=== PATIENT | male | born 1975 | race Caucasian/White ===

== ENCOUNTER 2020-03-01 12:54 | Emergency (ER) | payer BC, SELFPAY ==
--- NOTE | ~2020-03-01 | XR_ITS ---
EXAMINATION: XR toe 5th LT min 2V DATE: 03/01/2020 13:22 INDICATION: Left fifth toe injury. TECHNIQUE: 4 views of left fifth toe were obtained. COMPARISON: None. FINDINGS: There is an oblique fracture of neck of fifth proximal phalanx. The distal fracture fragmen t demonstrates 2 mm dorsal displacement, shortening, 36 degrees lateral angulation, and 32 degrees do rsal angulation. Joint spaces are normal. IMPRESSION: 1. Oblique fracture of neck of fifth proximal phalanx. Reviewed, dictated and finalized at location A.
--- NOTE | 2020-03-01 13:01 | ED.LOWEXIN ---
HPI - Extremity Injury (Lower) General Chief Complaint: Extremity Injury, Lower Stated Complaint: L/knee & foot pain History of Present Illness HPI Narrative: The patient, previously mostly healthy, presents with left , small toe pain that is moderate, worse with motion, better at rest, began prior to arrival. Patient states he slipped going downstairs striking the spindle/ baluster with toe; he also has trivial left knee discomfort. No bleeding, but there is mild swelling deformity with deviation of the distal toe. Patient advised to wear flat shoe, that he will need alex taping, and to follow-up with podiatry Related Data Allergies Allergy/AdvReac Type Severity Reaction Status Date / Time No Known Allergies Allergy Verified 08/03/19 10:18 Review of Systems Review of Systems: Narrative: General/Constitutional: No weight loss,fever Eyes: N0: Redness,discharge Ears/Nose/Throat: No: Epistaxis,ear discharge Respiratory: Denies: Hemoptysis Gastrointestinal: No Vomiting, Bleeding-rectal Skin: No Lumps, eruption Neurologic: No Focal Weakness,Sz Hematologic: Denies: Petechiae/Purpura Psychiatric: No: Suicida ideationl All Other Systems: Reviewed and Negative PMFSH Comments At time of signature, agree with nursing past medical, surgical, social and family history. There is no relevant family history pertinent to the presenting complaint Exam Narrative: Exam Narrative: General Appearance: Well appearing, Conjunctiva clear Mouth/Throat: Normal appearing, Supple Respiratory: Airway patent, No respiratory distress MS-toe: Normal strength (mostly intact, limited flexion/extension by pain), Tenderness (proximally, with mild decreased ROM), Swelling proximally, Other : Lateral angulation, no anterior drawer, no collateral laxity, skin intact Neurological: A&O x3, Normal affect Course Vital Signs Vital signs: Vital Signs Temperature 98.9 F 03/01/20 13:02 Pulse Rate 123 H 03/01/20 13:02 Respiratory Rate 12 03/01/20 13:02 Blood Pressure 139/69 03/01/20 13:02 Pulse Oximetry 98 03/01/20 13:02 Temperature 98.9 F 03/01/20 13:02 Pulse Rate 123 H 03/01/20 13:02 Respiratory Rate 12 03/01/20 13:02 Blood Pressure 139/69 03/01/20 13:02 Pulse Oximetry 98 03/01/20 13:02 Procedures Orthopedic Splinting/Casting Injury #1: Splinting/Casting Date: 03/01/20 Side: left Lower Extremity Injury Location: toe (, small) Pre-Formed: post op shoe Pre-Procedure Neuro Vascular Exam: normal Post-Procedure Neuro Vascular Exam: normal Additional Comments: Neurovascularly intact after toe realignment, foot splinting and taping Discharge Plan Discharge Clinical Impression: Toe fracture, left Qualifiers: Encounter type: initial encounter Toe: lesser toe Fracture type: closed Phalanx: proximal Fracture alignment: displaced Qualified Code(s): S92.512A - Displaced fracture of proximal phalanx of left lesser toe(s), initial encounter for closed fracture Patient Disposition: Home, Self-Care Condition: Improved Instructions: Toe Fracture (ED) Additional Instructions: Wear splint, see foot doctor in follow-up Prescriptions: New acetaminophen-codeine 300-30 mg tablet 1 tablet PO HS PRN (Reason: pain) Qty: 10 RF: 0 tramadol 50 mg tablet 50 mg PO TID PRN (Reason: pain) Qty: 15 RF: 1 Follow-up/Referrals: UNKNOWN,DOCTOR [Primary Care Provider] - Discharge Date/Time: 03/01/20 14:00
[2020-03-01 13:02] VITALS: BP 139/69; PULSE 123; RESP 12; TEMP 37.2; O2SAT 98
== END 2020-03-01 14:00 | disposition home or self-care (01) ==
PROVIDERS: Emergency Provider Emergency Medicine
DX: S92.512A Displaced fracture of proximal phalanx of left lesser toe(s), initial encounter for closed fracture (principal); W10.9XXA Fall (on) (from) unspecified stairs and steps, initial encounter
CPT/HCPCS: 73660; 99214; G0463

== ENCOUNTER 2021-05-19 19:09 | Emergency (ER) | payer BC, SELFPAY ==
[2021-05-19 19:13] VITALS: BP 135/86; PULSE 84; RESP 16; TEMP 36.6; O2SAT 97
--- NOTE | 2021-05-19 20:18 | ED.DENTAL ---
HPI - Dental/Oral General Chief complaint: Dental/Oral Stated complaint: infection in mouth Time Seen by Provider: 05/19/21 19:49 Source: patient and RN notes reviewed Mode of arrival: ambulatory Limitations: no limitations History of Present Illness HPI Narrative: This is a 45 year old male who presents for evaluation of left cheek swelling. PAtient reports he had a crown placed 1 week ago . He states the crown came off and it was replaced on Saturday. He developed left cheek swelling today. He was started on clindamycin by his dentist and referred to oral surgeon. He reports he has been taking tramadol and ibuprofen this week for his pain. He has been unable to sleep due to his pain. Related Data Allergies Allergy/AdvReac Type Severity Reaction Status Date / Time No Known Allergies Allergy Verified 05/19/21 20:18 Review of Systems Review of Systems: All systems reviewed & are unremarkable except as noted in HPI and below PMFSH Past Medical History Medical History (Updated 05/20/21 @ 00:00 by Background Daemon) Patient denies medical problems Exam Const: General: no acute distress and alert Orientation/consciousness: patient oriented x3 HENMT: Head: normocephalic and atraumatic Mouth: Yes lip normal, Yes moist mucous membranes, No trismus and Yes other (left cheek swelling) Teeth and gingiva: abnormal tooth and associated gingiva (draining abscess to left gum ta tooth 13, purulent drainage) and fair dentition Throat: posterior oropharynx normal, tonsils normal and uvula midline Resp: Effort & Inspection: normal respiratory effort Skin: General skin exam: normal color Neuro: General: patient oriented x3, moves all extremities and CN's II-XI intact bilaterally Psych: Mental Status: mental status grossly normal Affect: normal affect Course Reevaluation(s) Reevaluation #1: PAtient was given dose of IV clindamycin in ER and pain medication. HE will continue his clindamycin and apply warm compress to cheek to help drainage. Given that he is already draining will just continue antibiotics. HE will follow up with oral surgeon on Saturday. Date: 05/19/21 Time: 21:10 Vital Signs Vital signs: Vital Signs Temperature 97.8 F 05/19/21 19:13 Pulse Rate 84 05/19/21 19:13 Respiratory Rate 16 05/19/21 19:13 Blood Pressure 135/86 05/19/21 19:13 Pulse Oximetry 97 05/19/21 19:13 Temperature 97.8 F 05/19/21 19:13 Pulse Rate 80 05/19/21 21:33 Respiratory Rate 17 05/19/21 21:33 Blood Pressure 134/83 05/19/21 21:33 Pulse Oximetry 96 05/19/21 21:33 Discharge Plan Discharge Clinical Impression: Dental abscess Patient Disposition: Home, Self-Care Condition: Stable Instructions: Antibiotic Form, Dental Abscess (ED) Additional Instructions: Today you were evaluated for dental abscess. You will need to apply warm compresses to your cheek for 20 minute increments to help with abscess drainage. Take antibiotics as prescribed and follow up with oral surgeon on Saturday. Prescriptions: New ibuprofen 800 mg tablet 800 mg PO Q6H PRN (Reason: pain) Qty: 14 RF: 0 hydrocodone-acetaminophen 5-325 mg tablet 1 tablet PO Q6H PRN (Reason: pain) Qty: 6 RF: 0 No Action acetaminophen-codeine 300-30 mg tablet 1 tablet PO HS PRN (Reason: pain) Qty: 10 RF: 0 tramadol 50 mg tablet 50 mg PO TID PRN (Reason: pain) Qty: 15 RF: 1 Follow-up/Referrals: Aston,MD Lonny [Primary Care Provider] - Stand Alone Forms: Work/School Release IP
[2021-05-19] MEDS: ONDANSETRON INJ 4 MG/2 ML VIAL IV PUSH (20:21)
[2021-05-19] MEDS: HYDROmorphone HCL INJ (*CRX) 1 MG/ML SYR IV PUSH (20:21)
[2021-05-19] MEDS: CLINDAMYCIN 900 MG/D5W 50 ML 900 MG/50 ML PIGGYBACK 50 MG IVPB (20:32)
[2021-05-19 21:33] VITALS: BP 134/83; PULSE 80; RESP 17; O2SAT 96
== END 2021-05-19 21:46 | disposition home or self-care (01) ==
PROVIDERS: Emergency Provider General Practice; PCP Hospitalist
DX: R22.0 Localized swelling, mass and lump, head (principal); K04.7 Periapical abscess without sinus
CPT/HCPCS: 96365; 96375; 99284; J1170; J2405

== ENCOUNTER 2025-02-05 11:53 | Outpatient (CLI) | payer BC, SELFPAY ==
--- NOTE | ~2025-02-05 | XR_ITS ---
XR soft tissue neck 02/05/2025 12:18 Indication: Cervicogenic headache Procedure: 2 views of the neck soft tissues Comparison: No prior studies for comparison. Findings: No prevertebral soft tissue abnormality. Epiglottis within normal limits. No subglottic kota rowing. No evidence for enlargement of the adenoids or lingual tonsils. There is moderate multilevel facet hypertrophy more so on the right. Lung apices are normal. There is degenerative anterolisthesis at C4-5, C5-6 and C6-7. Impression: 1: No neck soft tissue abnormality. 2: Moderate cervical spondylosis. Reviewed, dictated and finalized at location B. Impression: 1: No neck soft tissue abnormality. 2: Moderate cervical spondylosis.
== END 2025-02-05 11:54 | disposition home or self-care (01) ==
DX: G44.86 Cervicogenic headache (principal); M47.892 Other spondylosis, cervical region
CPT/HCPCS: 70360

== ENCOUNTER 2025-03-19 07:08 | Outpatient (CLI) | payer BC, SELFPAY ==
--- NOTE | ~2025-03-19 | MR_ITS ---
EXAMINATION: MR cervical spine wo con DATE: 03/19/2025 07:35 INDICATION: Cervical radiculopathy. TECHNIQUE: Magnetic resonance imaging (MRI) of the cervical spine was performed without intravenous contrast. COMPARISON: None FINDINGS: There is 6 degrees levocurvature of cervicothoracic spine. Vertebral body heights are normal. There is mildly decreased disc height at C4-C5 and C5- C6. The spinal cord signal intensity is normal. The following disc levels are specifically discussed: C2-C3: The disc does not extend beyond the endplate margin. There is no uncovertebral joint osteoarthritis. There is severe right and mild left facet joint osteoarthritis. There is mild right neural foraminal stenosis. There is no central canal stenosis. C3-C4: The disc does not extend beyond the endplate margin. There is mild right uncovertebral joint osteoarthritis. There is severe right and moderate left facet joint osteoarthritis. There is mild right neural foraminal stenosis. There is no central canal stenosis. C4-C5: The disc does not extend beyond the endplate margin. There is mild bilateral uncovertebral joint osteoarthritis. There is severe right and mild left facet joint osteoarthritis. There is mild right neural foraminal stenosis. There is no central canal stenosis. C5-C6: The disc does not extend beyond the endplate margin. There is moderate right and mild left uncovertebral joint osteoarthritis. There is severe right and mild left facet joint osteoarthritis. There is mild right neural foraminal stenosis. There is no central canal stenosis. C6-C7: The disc does not extend beyond the endplate margin. There is moderate right and mild left uncovertebral joint osteoarthritis. There is moderate right and mild left facet joint osteoarthritis. There is mild right neural foraminal stenosis. There is no central canal stenosis. C7-T1: The disc does not extend beyond the endplate margin. There is no uncovertebral joint osteoarthritis. There is severe right and moderate left facet joint osteoarthritis. There is mild bilateral neural foraminal stenosis. There is no central canal stenosis. IMPRESSION: 1. Mild cervical spondylosis. Reviewed, dictated and finalized at location E.
== END 2025-03-19 07:09 | disposition home or self-care (01) ==
LOC: MICIMG 07:09
DX: M47.22 Other spondylosis with radiculopathy, cervical region (principal)
CPT/HCPCS: 72141

== ENCOUNTER 2025-05-14 10:19 | Outpatient (CLI) | payer BC, SELFPAY ==
--- NOTE | ~2025-05-14 | CT_ITS ---
EXAMINATION: CT abdomen pelvis wo/w con DATE: 05/14/2025 11:00 INDICATION: Hematuria. TECHNIQUE: Computed tomography (CT) of the abdomen and pelvis was performed without and with intravenous contrast using a total of 130 mL Omnipaque-350 intravenous contrast with a double-bolus technique for simultaneous opacification of the renal parenchyma and renal collecting system. Automated exposure control and iterative reconstruction technique were employed. The dose- length product was 1592.28 mGy-cm. COMPARISON: None FINDINGS: The visualized portions of the lung bases demonstrate calcified pulmonary nodules and calcified hilar and mediastinal lymph nodes, consistent with old granulomatous disease. No pleural effusion. The heart size is normal. No pericardial effusion. The liver and gallbladder are normal. Calcifications in t he spleen are consistent with old granulomatous disease. The pancreas, adrenal glands, and left kidney are normal. There are cysts in right kidney measuring up to 15 mm. The ureters are well opacified and are normal. The bladder is normal. The prostate is mildly enlarged. There are no dilated loops of bowel. The appendix is normal. There are no pathologically enlarged lymph nodes. There is no free intraperitoneal fluid. There is mild thoracic and lumbar spondylosis. IMPRESSION: 1. No etiology for hematuria. Reviewed, dictated and finalized at location E.
== END 2025-05-14 10:20 | disposition home or self-care (01) ==
LOC: MICIMG 10:20
PROVIDERS: Visit Provider Internal Medicine Infectious Disease
DX: R31.9 Hematuria, unspecified (principal)
CPT/HCPCS: 74178; Q9967